=== PATIENT | female | born 1955 | race Caucasian/White ===

== ENCOUNTER 2019-05-16 09:02 | Emergency (ER) | payer OTHER, BC ==
[2019-05-16 10:58] VITALS: BP 0/0
--- NOTE | 2019-05-16 14:04 | ED ---
Head Injury - HPI Summary HPI Summary: This patient is a 63-year-old female who presents to the ED after a fall approximately 30 minutes [employer]. Patient states she slipped on the ice right outside [place] trying to get into her car. She fell and hit the right side of her head. Since that time, she has been endorsing mild headache and some visual changes. Denies any LOC. Denies any nausea, vomiting, memory loss, confusion. History of concussions. States this feels similar. Denies any blood thinners. Endorses small laceration to the R adventist. Minimal blood loss. - History Of Current Complaint Chief Complaint: EDLacSutureRecheck Stated Complaint: FALL/HEAD LAC PER PT Time Seen by Provider: 05/16/19 09:16 Hx Obtained From: Patient Onset/Duration: Started Hours Ago Onset of Pain: Minutes Severity Currently: Mild Severity Initially: Mild Pain Intensity: 2 Pain Scale Used: 0-10 Numeric Location of Head Injury: Temporal - laceration Associated Signs And Symptoms: Negative - Risk Factors SDH Risk Factor: Negative - Allergies/Home Medications Allergies/Adverse Reactions: Allergies Allergy/AdvReac Type Severity Reaction Status Date / Time diphenhydramine Allergy See Comment Verified 05/16/19 09:15 [From Benadryl] epinephrine Allergy See Comment Verified 05/16/19 09:14 tetracycline Allergy See Comment Verified 05/16/19 09:15 PMH/Surg Hx/FS Hx/Imm Hx Previously Healthy: Yes - Cancer History Hx Chemotherapy: No Hx Radiation Therapy: No - Immunization History Hx Pertussis Vaccination: No Immunizations Up to Date: Yes Infectious Disease History: No Infectious Disease History: Reports: Traveled Outside the in Last 30 Days - Social History Occupation: Employed Full-time Lives: With Family Alcohol Use: Occasionally Hx Substance Use: No Substance Use Type: Reports: None Smoking Status (MU): Never Smoked Tobacco Review of Systems Negative: Fever, Chills, Fatigue, Skin Diaphoresis Negative: Palpitations, Chest Pain Negative: Shortness Of Breath, Cough Genitourinary: Negative Positive: no symptoms reported, see HPI Negative: Arthralgia, Myalgia Skin: Negative Positive: Headache All Other Systems Reviewed And Are Negative: Yes Physical Exam Triage Information Reviewed: Yes Vital Signs On Initial Exam: Initial Vitals Temp Pulse Resp BP Pulse Ox 96.3 F 64 16 165/117 95 05/16/19 09:07 05/16/19 09:07 05/16/19 09:07 05/16/19 09:07 05/16/19 09:07 Vital Signs Reviewed: Yes Appearance: Positive: Well-Appearing, Well-Nourished Skin: Positive: Warm, Skin Color Reflects Adequate Perfusion Head/Face: Positive: Normal Head/Face Inspection Eyes: Positive: EOMI, EBONY, Conjunctiva Clear Respiratory/Lung Sounds: Positive: Clear to Auscultation, Breath Sounds Present Cardiovascular: Positive: RRR, Pulses are Symmetrical in both Upper and Lower Extremities Musculoskeletal: Positive: Normal, Strength/ROM Intact Neurological: Positive: Sensory/Motor Intact, Alert, Oriented to Person Place, Time, CN Intact II-III, Normal Gait, Speech Normal Psychiatric: Positive: Normal, Affect/Mood Appropriate - [place] Coma Scale Best Eye Response: 4 - Spontaneous Best Motor Response: 6 - Obeys Commands Best Verbal Response: 5 - Oriented Coma Scale Total: 15 Procedures - Sedation Patient Received Moderate/Deep Sedation with Procedure: No Diagnostics - Vital Signs Vital Signs Temp Pulse Resp BP Pulse Ox 05/16/19 10:57 0 F 0 0 0/0 0 05/16/19 09:07 96.3 F 64 16 165/117 95 - Laboratory Lab Statement: Any lab studies that have been ordered have been reviewed, and results considered in the medical decision making process. Head Injury Course/Dx Course Of Treatment: Patient appears well on arrival. She does endorse a mild headache and some visual changes. She denies any blood thinners. Patient has had multiple concussions in the past and is concerned for concussion today. She denies any LOC, but noted since the fall, her vision may have worsened. Continues to endorse 5/10 CROWLEY. Laceration was cleansed and [address] obtained as patient has been having CROWLEY and visual changes. Complete neuro exam completed and WNL. Normal head/face inspection with no cephalohematoma. Reflexes intact. EOMI, EBONY. No obvious confusion or memory loss per patient and family. MMSE OK. GCS 15. Patient oriented to person, place and date. No obvious deformity or signs of trauma. Patient denies LOC. Visual acuity intact. ROM, strength, reflexes in upper and lower extremity intact, sensation intact. Patient discharged with return precautions and post- concussive symptoms explained to patient. Patient agrees to follow up and return if needed. - Diagnoses Differential Diagnosis/HQI/PQRI: Concussion With LOC, Concussion Without LOC, Contusion, Other - laceration Provider Diagnoses: Head injury, Concussion Discharge ED - Sign-Out/Discharge Documenting (check all that apply): Patient Departure - Discharge Plan Condition: Stable Disposition: HOME Patient Education Materials: Head Injury (ED) Referrals: Estrellita Verde MD [Primary Care Provider] - Additional Instructions: Please follow up with PCP for any worsening symptoms Brain rest today and tomorrow Tylenol and ibuprofen for any discomfort Keep steri strips applied for 1-2 days - Billing Disposition and Condition Condition: STABLE Disposition: Home
== END 2019-05-16 10:57 | disposition home or self-care (01) ==
LOC: ED 09:02
DX: S06.0X0A Concussion without loss of consciousness, initial encounter (principal); W00.0XXA Fall on same level due to ice and snow, initial encounter; Y92.9 Unspecified place or not applicable; R51 Headache; Z88.8 Allergy status to other drugs, medicaments and biological substances
CPT/HCPCS: 70450; 99282